=== PATIENT | male | born 1955 | race Caucasian/White ===

== ENCOUNTER 2016-07-13 19:17 | Emergency (ER) | payer OTHER ==
[~2016-07-13] VITALS: Ht 190.5 cm; Wt 136.4 kg
[2016-07-13 19:49] VITALS: BP 129/73; PULSE 59; RESP 16; O2SAT 98
--- NOTE | 2016-07-13 20:19 | DRSVH ---
PROCEDURE: X-RAY CHEST ONE VIEW, PORTABLE ([id number]) INDICATIONS: 60 year-old male with shortness of breath. TECHNIQUE: One view of the chest was acquired. COMPARISON: None. FINDINGS: Surgical changes and devices: None. Lungs and pleura: No pleural effusions or pneumothorax. Lungs are clear. Mediastinum: Mediastinal contours appear normal. Heart size is normal. Bones and chest wall: No suspicious bony lesions. Overlying soft tissues appear unremarkable. IMPRESSION: No acute cardiopulmonary disease. Dictated by: Gage Brand M.D. on 07/13/2016 at 20:17 Approved by: Gage Brand M.D. on 07/13/2016 at 20:17
[2016-07-13 20:20] LABS: BASOPHILS % (AUTO) 0.4 % (0-3); EOSINOPHILS % (AUTO) 0.6 % (0-5); MONOCYTES % (AUTO) 9.7 % (4-12); Mean Corpuscular Hemoglobin 29.7 pg (27.0-35.0); Mean Corpuscular Volume 88.4 fL (81-100); NEUTROPHILS % (AUTO) 71.1 % (40-74); Platelet Count 269 bil/L (150-400)
[2016-07-13 20:39] LABS: INR 0.95 ratio
--- NOTE | 2016-07-13 21:20 | ED.REPORT ---
HPI-General Illness Date of Service Jul 13, 2016 ED Provider: Dr. Darius Gar M.D. A 60 year old male with a history of back pain and restless leg syndrome presents to the ED via EMS with increasing shortness of breath onset two days ago. He was diagnosed with influenza at onset and his chest x-ray was negative for pneumonia at that time. Per EMS his O2 saturation was 98% on room air and he was given 4mg Zofran en route. The patient also reports productive cough with clear sputum, nausea, vomiting, and anxiety. He denies fever. Nursing Notes Stated Complaint: SHORTNESS OF BREATH Chief Complaint: Respiratory Complaints Nursing Notes Reviewed: Yes Allergies: Coded Allergies: Honey Bee (Verified Allergy, Intermediate, Anaphylaxis, 07/13/16) General Time Seen by MD: 21:20 Chief Complaint Other (Shortness of Breath) Hx Obtained From: Patient Arrived By: Ambulance Sudden in Onset?: No Onset Occurred: 2 days ago Symptom Duration: Since onset Severity: Current: No pain currently Severity: Maximum: No pain Associated with: Reports: Cough, Nausea, Vomiting, Denies: Fever Pertinent Negative: Relieved by nothing Recent Healthcare: Recent doctor visit Past Medical History Past Medical History Restless leg syndrome Back pain Past Surgical History Lower back 2015 Smoking History Never Smoker Social History Other Social History: Good social support, Ambulatory Status Independent Review of Systems Full Review of Systems Constitutional: Denies: Fever Respiratory: Reports: Prod cough, clear, Shortness of breath GI: Reports: Nausea, Vomiting Psychiatric: Reports: Anxiety Complete sys rev & neg: except as marked. Physical Exam Vital Signs Vital Signs Date Time Temp Pulse Resp B/P Pulse Ox O2 Delivery O2 Flow Rate FiO2 07/13/16 22:33 37.2 66 18 122/74 96 Room Air 07/13/16 22:22 37.2 66 122/74 96 Room Air 07/13/16 21:47 56 18 98 Nasal Cannula 2 07/13/16 19:49 36.4 59 16 129/73 98 Nasal Cannula 2 Initial VS: Reviewed Head / Eyes: Atraumatic, Normocephalic ENT: Conjunctiva normal, No scleral icterus Neck: Supple, Full range of motion Respiratory: Breath sounds normal, Clear to auscultation, No respiratory distress Cardiovascular: Regular rate & rhythm, Heart sounds normal Abdomen / GI: Soft, Non-tender Skin: Warm, Dry, No cyanosis Neurologic: Alert, Oriented, Nonfocal Psychiatric: Mood/affect normal, Behavior normal, Normal thought content General/Constitutional: Awake, Alert Distress / Hydration: Positive: Dehydration mild Appearance / Presentation: Positive: Ill appearing/not toxic (Mild) Interpretation & Diagnostics Lab Results Interpretation Result Diagram: 07/13/16201407/13/16 2015 Test 07/13/16 20:15 White Blood Count 8.1th/mm3 (3.8-10.1) Red Blood Count 4.81mil/mm3 (4.40-5.80) Hemoglobin 14.3g/dL (13.8-17.2) Hematocrit 42.5% (41.0-50.0) Mean Corpuscular Volume 88.4fL (81-100) Mean Corpuscular Hemoglobin 29.7pg (27.0-35.0) Mean Corpuscular Hemoglobin Concent 33.6% (32.0-37.0) Red Cell Distribution Width 13.3% (12.3-15.4) Platelet Count 269bil/L (150-400) Neutrophils (%) (Auto) 71.1% (40-74) Lymphocytes (%) (Auto) 17.8% (14-46) Monocytes (%) (Auto) 9.7% (4-12) Eosinophils (%) (Auto) 0.6% (0-5) Basophils (%) (Auto) 0.4% (0-3) Prothrombin Time 10.2sec (8.1-12.5) Prothromb Time International Ratio 0.95ratio Sodium Level 135mEq/L (134-144) Potassium Level 3.4mEq/L (3.5-5.2) Chloride Level 98mEq/L (97-108) Carbon Dioxide Level 23mmol/L (18-29) Blood Urea Nitrogen 24mg/dL (8-27) Creatinine 0.81mg/dL (0.76-1.27) Estimat Glomerular Filtration Rate 103mL/min (>59) Glucose Level 112mg/dL (60-99) Calcium Level 9.3mg/dL (8.5-10.1) Total Bilirubin 1.3mg/dL (0.0-1.2) Aspartate Amino Transf (AST/SGOT) 32U/L (0-50) Alanine Aminotransferase (ALT/SGPT) 31U/L (0-44) Alkaline Phosphatase 61U/L (25-160) Total Protein 7.4g/dL (6.4-8.4) Albumin 4.2g/dL (3.4-5.0) Hold Garcia Top Tube Received (Received) ECG Interpretation ECG Interpretation: Sinus rhythm rate 58 Time: 20:36 Interpreted by: ED physician X-Ray Chest Interpretation Chest Xray Interpretation: IMPRESSION: No acute cardiopulmonary disease. Dictated by: Gage Brand M.D. on 07/13/2016 at 20:17 View: Portable, 1 view Interpretation / Wet Read by: Interpret - Radiologist Re-Eval/Medical Decision Med Decision/Clinical Course 14-year-old with cough and mild respiratory distress. He is a chronic smoker. Is thinking about quitting and is strongly encouraged again to do so. Improved here after albuterol. No pneumonia on x-ray. Flu swab is positive. Time of Eval: 22:16 Patient Status: Condition improved Re-Evaluation/Progress Note: Patient is feeling better. Discussed with patient diagnosis and plan for discharge. Follow-up and return to the ER instructions given. Patient agrees with plan for care and all questions were addressed. Counseled Regarding: Diagnosis, Need for follow-up, When/why to return to ED Discharge & Departure Primary Impression: Influenza A Additional Impression: Acute bronchitis Bronchitis organism: unspecified organism Qualified Code: J20.9 - Acute bronchitis, unspecified Disposition: Home Discharge Condition All VS Reviewed: Yes Condition: Stable Patient Instructions: Acute Bronchitis (ED), Albuterol (By breathing), Influenza (ED) Additional Instructions: Albuterol puffer two puffs every 3-4 hours as needed for cough or tightness. Follow-up with your doctor in the office. Return here if worsening despite treatment. You may call tonight if you have any immediate questions. I am at [phone]. Stay well hydrated. Drink plenty of fluids. Run a vaporizer in your sleeping room if available. Referrals: Connor Griffin MD (PCP) Scribe Attestation Portions of this note were transcribed by Marina Guerrier. I, Dr. Gar, personally performed the history, physical exam, and medical decision-making; I reviewed and confirmed the accuracy of the information in the transcribed note. Signed by: Arely Reynoso, 07/13/2016, 23:06 copies to: Connor Griffin MD, Christopher W MD Jul 13, 2016 21:20 MARINA GUERRIER Jul 13, 2016 21:36
[2016-07-13] MEDS ORDERED: Albuterol-Ipratropium 3 mL Inhalation Solution NEB ONE (21:35)
[2016-07-13] MEDS ORDERED: _Albuterol-HFA 60 Puff Inhaler INHALATION PRN (21:35)
[2016-07-13 21:47] VITALS: PULSE 56; RESP 18; O2SAT 98
[2016-07-13 22:22] VITALS: BP 122/74; PULSE 66; O2SAT 96
[2016-07-13 22:33] VITALS: BP 122/74; PULSE 66; RESP 18; O2SAT 96
== END 2016-07-13 22:34 | disposition home or self-care (01) ==
LOC: EDBD 19:17 → SED 19:17
DX: J11.1 Influenza due to unidentified influenza virus with other respiratory manifestations (principal); J20.9 Acute bronchitis, unspecified; Z91.030 Bee allergy status
CPT/HCPCS: 36415; 71010; 80053; 85025; 85610; 93005; 94640; 94664; 99285; J7620